=== PATIENT | female | born 2005 | race African-American/Black ===

== ENCOUNTER 2025-09-03 12:57 | Emergency (ER) | payer SELFPAY ==
[~2025-09-03] VITALS: Ht 154.9 cm; Wt 87.3 kg
[2025-09-03 13:09] VITALS: BP 142/70; PULSE 87; RESP 18; TEMP 98.2; O2SAT 99
[2025-09-03 13:40] LABS: PLATELET COUNT (AUTO) 331 K/uL (150-450); RED BLOOD CELL COUNT(AUTO) 4.38 MIL/uL (4.00-5.20); RED CELL DISTRIBUTION WIDTH 13.8 % (11.5-14.5); WHITE BLOOD COUNT (AUTO) 6.4 K/uL (4.5-11.0)
[2025-09-03 13:50] LABS: APPEARANCE,URINE CLEAR (CLEAR); GLUCOSE, URINE (UA) NEGATIVE (NEGATIVE); LEUKOCYTE ESTERASE ,URINE TRACE (NEGATIVE); NITRATE,URINE NEGATIVE (NEGATIVE); OCCULT BLOOD,URINE NEGATIVE (NEGATIVE); SPECIFIC GRAVITIY, URINE 1.008 (1.003-1.030)
[2025-09-03 13:52] LABS: CALCIUM, TOTAL 8.8 mg/dL (8.8-10.5); CREATININE 0.52 mg/dL (0.60-1.30); GLOMERULAR FILTR. RATE CALC > 60 mL/min (>60); GLUCOSE,RANDOM 113 mg/dL (70-110); SODIUM SERUM 133 mmol/L (136-145); UREA NITROGEN, BLOOD 3 mg/dL (7-18)
[2025-09-03 13:59] LABS: SQUAMOUS EPITHELIAL CELL,UR Few /LPF (None Seen)
[2025-09-03] MEDS: ONDANSETRON HCL 4 MG/2 ML VIAL IVP ONE (14:19)
[2025-09-03] MEDS ORDERED: DOXY1TAB3 PO (15:14)
[2025-09-03] MEDS ORDERED: PREN-18 PO (15:14)
== END 2025-09-03 15:25 | disposition home or self-care (01) ==
LOC: EMS 12:57
DX: O21.0 Mild hyperemesis gravidarum (principal); N89.8 Other specified noninflammatory disorders of vagina; Z3A.11 11 weeks gestation of pregnancy
CPT/HCPCS: 99285; 96374; 76805; 80048; 81001; 83690; 84702; 85025; 36415; J2405